=== PATIENT | female | born 1990 | race Two or more races ===

== ENCOUNTER 2018-07-15 09:53 | Emergency (ER) | payer SELFPAY ==
[~2018-07-15] VITALS: Ht 175.3 cm; Wt 95.5 kg
[2018-07-15] MEDS ORDERED: CBD PO (10:03)
[2018-07-15 12:29] VITALS: BP 149/42
== END 2018-07-15 12:30 | disposition home or self-care (01) ==
LOC: EMS 09:57
DX: B86 Scabies (principal); F17.200 Nicotine dependence, unspecified, uncomplicated; F12.90 Cannabis use, unspecified, uncomplicated; Z91.018 Allergy to other foods